=== PATIENT | male | born 2000 | race Caucasian/White ===

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

== ENCOUNTER → 2021-04-30 14:55 | Outpatient (BNVA) | payer OTHER, SELFPAY | PROVIDERS: Visit Provider Nurse Practitioner Family | DX: Z20.822 Contact with and (suspected) exposure to COVID-19 (principal) | CPT/HCPCS: 87635 ==

== ENCOUNTER → 2021-05-03 00:01 | Outpatient (BNVA) | payer OTHER, SELFPAY | PROVIDERS: Visit Provider Nurse Practitioner Family | DX: Z20.828 Contact with and (suspected) exposure to other viral communicable diseases (principal); Z20.822 Contact with and (suspected) exposure to COVID-19 | CPT/HCPCS: 87635 ==

== ENCOUNTER 2021-08-15 06:16 | Emergency (ER) | payer BC, MEDICAID, SELFPAY ==
[2021-08-15 06:18] VITALS: BP 142/87; PULSE 89; RESP 23; TEMP 37; O2SAT 99; BMI 30.7
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
[2021-08-15 06:26] VITALS: PULSE 86; RESP 16; O2SAT 100
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
[2021-08-15] MEDS: sodium chloride 0.9% 1,000 ML 999 ML IV (06:27)
[2021-08-15 06:28] VITALS: BP_SYST 142; RESP 18
[2021-08-15 06:39] LABS: Basophils # 0.1 10^3/uL (0.0-0.1); Basophils % 0.5 %; Eosinophils # 0.1 10^3/uL (0.0-0.8); Eosinophils % 1.4 %; Hematocrit 47.8 % (42.0-52.0); Lymphocytes # 3.2 10^3/uL (1.5-6.5); Lymphocytes % 32.1 %; Mean Corpuscular HGB Conc 33.5 g/dL (30.0-36.0); Mean Corpuscular Volume 86.6 fl (80-94); Mean Platelet Volume 9.6 fL (7.4-10.4); Monocytes # 0.8 10^3/uL (0.2-0.9); Monocytes % 7.8 %; Neutrophils % 57.3 %; Nucleated Red Blood Cells % 0 %; Platelet Count 340 10^3/cmm (130-400); Red Blood Count 5.52 10^6/uL (4.1-5.3); Red Cell Distribution Width 11.9 % (12.1-15.1)
[2021-08-15 06:52] LABS: Alanine Aminotransferase 47 U/L (0-41); Albumin Level 4.8 g/dL (3.5-5.2); Alkaline Phosphatase 130 IU/L (40-130); Anion Gap 14.2 (5-19); Aspartate Amino Transferase 21 U/L (0-40); Blood Urea Nitrogen 8 mg/dL (6-20); Calcium 10.1 mg/dL (8.5-10.5); Carbon Dioxide 26 mmol/L (22-29); Chloride 103 mmol/L (98-107); Creatinine Clr Calc Pharmacy 158.8984; Globulin 2.6 g/dL (1.3-4.6); Glomerular Filtration Rate 108.7 mL/min (90-130); Glucose 121 mg/dL (65-115); Osmolality Calculated 288 mOsm/kg (285-295); Potassium 4.2 mmol/L (3.5-5.1); Sodium 139 mmol/L (136-145); Total Bilirubin 0.2 mg/dL (0.15-1.2); Total Protein 7.4 g/dL (6.6-8.7)
[2021-08-15] MEDS: iohexol 350 mg/mL 100 mL Btl IV (06:55)
[2021-08-15] MEDS: tetanus-dipt-pertussis 0.5 mL SDV IM (07:36)
== END 2021-08-15 07:47 | disposition home or self-care (01) ==
PROVIDERS: Emergency Provider Family Medicine
DX: Z04.1 Encounter for examination and observation following transport accident (principal); S30.811A Abrasion of abdominal wall, initial encounter; S60.511A Abrasion of right hand, initial encounter; V19.40XA Pedal cycle driver injured in collision with unspecified motor vehicles in traffic accident, initial encounter; Y93.55 Activity, bike riding; M79.652 Pain in left thigh; Z23 Encounter for immunization
CPT/HCPCS: 70450; 71260; 72125; 73552; 73590; 74177; 80053; 85025; 90471; 90715; 96360; 99284; J7030; Q9967

== ENCOUNTER → 2021-08-27 09:01 | Outpatient (BNVA) | payer BC, MEDICAID, SELFPAY | PROVIDERS: PCP Family Medicine; Visit Provider Family Medicine | DX: Z76.89 Persons encountering health services in other specified circumstances (principal); R30.0 Dysuria; M54.16 Radiculopathy, lumbar region; M54.50 Low back pain, unspecified | CPT/HCPCS: 81003 ==

== ENCOUNTER → 2021-09-24 09:58 | Outpatient (BNVA) | payer BC, MEDICAID, SELFPAY | PROVIDERS: PCP Family Medicine; Visit Provider Family Medicine | DX: M54.16 Radiculopathy, lumbar region (principal); M54.50 Low back pain, unspecified; R31.9 Hematuria, unspecified | CPT/HCPCS: 81000; 87086 ==

== ENCOUNTER → 2021-09-25 14:59 | Outpatient (BNVA) | payer BC, MEDICAID, SELFPAY | PROVIDERS: PCP Family Medicine; Referring Provider Family Medicine; Visit Provider Specialist | DX: M25.562 Pain in left knee (principal) | CPT/HCPCS: 73560; 73565; 99203; 99204 ==

== ENCOUNTER → 2021-10-01 14:06 | Outpatient (BNVA) | payer BC, MEDICAID, SELFPAY | PROVIDERS: PCP Family Medicine; Referring Provider Family Medicine; Visit Provider Physician Assistant | DX: M54.16 Radiculopathy, lumbar region (principal); M25.512 Pain in left shoulder; M25.562 Pain in left knee | CPT/HCPCS: 72110; 73030; 99204 ==

== ENCOUNTER → 2021-11-06 07:50 | Outpatient (BNVA) | payer BC, MEDICAID, SELFPAY | PROVIDERS: PCP Family Medicine; Visit Provider Nurse Practitioner Family | DX: R31.29 Other microscopic hematuria (principal); N41.9 Inflammatory disease of prostate, unspecified | CPT/HCPCS: 81003 ==

== ENCOUNTER 2022-11-23 08:16 | Emergency (ER) | payer OTHER, SELFPAY ==
[2022-11-23 08:25] VITALS: BP 143/83; PULSE 94; RESP 18; TEMP 36.8; O2SAT 96
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
[2022-11-23] MEDS: lidocaine 1% INJ 10 mL (per mL) IM (09:00)
== END 2022-11-23 09:47 | disposition home or self-care (01) ==
PROVIDERS: Emergency Provider Family Medicine; PCP Family Medicine
DX: S61.215A Laceration without foreign body of left ring finger without damage to nail, initial encounter (principal); W26.8XXA Contact with other sharp object(s), not elsewhere classified, initial encounter
CPT/HCPCS: 12002; 99283

== ENCOUNTER 2023-01-03 14:11 | Emergency (ER) | payer BC, SELFPAY ==
[2023-01-03 14:14] VITALS: BP 135/85; PULSE 100; RESP 17; TEMP 36.8; O2SAT 98
[2023-01-03 14:22] VITALS: BP 137/83; PULSE 88; O2SAT 96
--- NOTE | 2023-01-03 14:22 | XRR_ITS ---
PROCEDURE INFORMATION: Exam: XR Chest Exam date and time: 01/03/2023 2:29 PM Age: 22 years old Clinical indication: Cough and dyspnea; Additional info: Dyspnea/cough TECHNIQUE: Imaging protocol: Radiologic exam of the chest. Views: 1 view. COMPARISON: CT chest chelseapel w/*[id number] 08/15/2021 6:43 AM FINDINGS: Lungs: Unremarkable. No consolidation. Pleural spaces: Unremarkable. No pleural effusion. No pneumothorax. Heart/Mediastinum: Unremarkable. No cardiomegaly. Bones/joints: Unremarkable. XR/XR chest 1V portable [id number] IMPRESSION: No acute findings.
--- NOTE | 2023-01-03 14:28 | ECG_ITS ---
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 Measurements Intervals [place] Rate: 85 P: 42 WV: 144 QRS: 45 QRSD: 88 T: 15 QT: 334 QTc: 398 Interpretive Statements SINUS RHYTHM WITH SINUS ARRHYTHMIA No previous ECG available for comparison Electronically Signed On 01-03-2023 20:30:06 CDT by Casey Golden M.D. [email or web address]
[2023-01-03 15:00] LABS: Basophils # 0.1 10^3/uL (0.0-0.1); Basophils % 0.5 %; Eosinophils # 0.1 10^3/uL (0.0-0.8); Eosinophils % 0.6 %; Hematocrit 46.9 % (37-53); Lymphocytes # 2.3 10^3/uL (0.8-4.8); Lymphocytes % 17.4 %; Mean Corpuscular HGB Conc 32.6 g/dL (30-55); Mean Corpuscular Hemoglobin 29.2 pg (27-33); Mean Corpuscular Volume 89.5 fl (82-101); Monocytes % 7.5 %; Neutrophils # 9.75 10^3/uL (1.8-7.7); Neutrophils % 73.5 %; Nucleated Red Blood Cells % 0 %; Platelet Count 302 10^3/cmm (157-399); Red Blood Count 5.24 10^6/uL (3.85-5.65); Red Cell Distribution Width 12.1 % (12.1-15.1); White Blood Count 13.24 10^3/uL (3.29-11.43)
--- NOTE | 2023-01-03 15:01 | W.ED.URI ---
HPI - URI/Sore Throat General: Chief Complaint: Upper Respiratory Infection Stated Complaint: abd pain, coughing up blood Time Seen by Provider: 01/03/23 14:22 Source: patient Mode of arrival: ambulatory History of Present Illness: 22-year-old male presents emergency room with complaint of productive cough and shortness of breath. He has had it for the last couple of days he was seen in walk-in clinic was thought to be viral was treated symptomatically. He has been coughing more frequently and has had onset of some whitish mucus with blood streaking in it. No fevers sweats or chills. MD elicited complaint: fever Onset (ago): day(s) Consistency: intermittent Severity: mild Description of mucous: clear and bloody (Slight streaking) Exacerbating factors: nothing Relieving factors: nothing Associated symptoms: Reports congestion and cough; Deny abdominal pain, change in voice, chills, chest pain, diarrhea, fever(s), headache(s), myalgias, nausea, rash, rhinorrhea, short of breath, stiffness, sore throat or vomiting Review of Systems Const: Denies: fever(s) or chills Card: Denies: chest pain, palpitations, irregular heart rhythm or edema Resp: Reports: productive cough, hemoptysis (Scant) and chest congestion; Denies: dyspnea or non-productive cough GI: Denies: abdominal pain, nausea, vomiting or diarrhea : Denies: flank pain, dysuria, urinary frequency or urinary urgency Skin/Breast: Denies: rash or pruritus Neuro: Denies: headache(s) PFS ED PFSH: Family History Mother Healthy adult Father Diabetes Social History Smoking and tobacco status: never smoked Alcohol intake: never Substance/Drug Use: never Caregiver/support person: Yes Household members: family Marital status: Single Current occupational status: employed Physical Exam Const: GENERAL APPEARANCE: cooperative and comfortable ORIENTATION/CONSCIOUSNESS: Yes awake, Yes oriented to person, Yes oriented to place and Yes oriented to time HENMT: COMMON NORMALS: normocephalic, atraumatic and hearing grossly normal bilaterally HEAD & SCALP: normocephalic and atraumatic Resp: COMMON NORMALS: normal respiratory effort, No retractions, No use of accessory muscles and clear to auscultation bilaterally AUSCULTATION: clear to auscultation bilaterally Cardio: COMMON NORMALS: regular rate, regular rhythm and No murmurs present (Cardio) RATE: regular rate RHYTHM: regular rhythm GI: COMMON NORMALS: Soft to palpation and No hepatosplenomegaly present AUSCULTATION: Yes normoactive bowel sounds PALPATION: Yes Soft to palpation, No Tenderness to palpation present (GI), No Guarding due to palpation present (GI) and Yes No hepatosplenomegaly present Extremity: COMMON NORMALS: normal to inspection, capillary refill normal, no clubbing, cyanosis or edema, no calf tenderness and no pedal edema Neuro: SENSORIUM/ORIENTATION: Yes oriented to person, Yes oriented to place and Yes oriented to time Skin: COMMON NORMALS: no rashes or lesions noted GENERAL SKIN EXAM: no rashes or lesions noted Course Vital Signs: Vital signs: Vital Signs Temperature 98.3 F 01/03/23 14:14 Pulse Rate 84 01/03/23 16:14 Respiratory Rate 16 01/03/23 16:14 Blood Pressure 121/80 01/03/23 16:14 Pulse Oximetry 98 01/03/23 16:14 Oxygen Delivery Me thod Room Air 01/03/23 14:22 MDM - URI/Sore Throat Medical Decision Making No acute pneumonia on chest x-ray. Chest x-rays and laboratory test reviewed. Suspect bronchitis suspect he tore some blood vessels with the excessive coughing we will start him on doxycycline 100 twice daily for 10 days and albuterol to use as needed follow-up if not improving or worsens Medical Records I reviewed the patient's medical records. Lab Data I reviewed the patient's lab results. 01/03/23 14:53 01/03/23 14:53 Radiology Impressions Chest X-Ray 01/03/23 14:22 IMPRESSION: No acute findings. Laboratory Results WBC 13.24 10^3/uL (3.29-11.43) H 01/03/23 14:53 RBC 5.24 10^6/uL (3.85-5.65) 01/03/23 14:53 Hgb 15.30 g/dL (11.27-16.99) 01/03/23 14:53 Hct 46.9 % (37-53) 01/03/23 14:53 MCV 89.5 fl (82-101) 01/03/23 14:53 MCH 29.2 pg (27-33) 01/03/23 14:53 MCHC 32.6 g/dL (30-55) 01/03/23 14:53 RDW 12.1 % (12.1-15.1) 01/03/23 14:53 Plt Count 302 10^3/cmm (157-399) 01/03/23 14:53 MPV 9.0 fL (7.4-10.4) 01/03/23 14:53 Neut % (Auto) 73.5 % 01/03/23 14:53 Lymph % (Auto) 17.4 % 01/03/23 14:53 [place] % (Auto) 7.5 % 01/03/23 14:53 Eos % (Auto) 0.6 % 01/03/23 14:53 Baso % (Auto) 0.5 % 01/03/23 14:53 Neut # (Auto) 9.75 10^3/uL (1.8-7.7) H 01/03/23 14:53 Lymph # (Auto) 2.3 10^3/uL (0.8-4.8) 01/03/23 14:53 [place] # (Auto) 1.0 10^3/uL (0.2-0.9) H 01/03/23 14:53 Eos # (Auto) 0.1 10^3/uL (0.0-0.8) 01/03/23 14:53 Baso # (Auto) 0.1 10^3/uL (0.0-0.1) 01/03/23 14:53 Nucleated RBC % (auto) 0 % 01/03/23 14:53 Nucleated RBCs # 0.0 /100WBC 01/03/23 14:53 Sodium 137 mmol/L (136-145) 01/03/23 14:53 Potassium 4.3 mmol/L (3.5-5.1) 01/03/23 14:53 Chloride 101 mmol/L (98-107) 01/03/23 14:53 Carbon Dioxide 26 mmol/L (22-29) 01/03/23 14:53 Anion Gap 14.3 (5-19) 01/03/23 14:53 BUN 11 mg/dL (6-20) 01/03/23 14:53 Creatinine 1.0 mg/dL (0.7-1.2) 01/03/23 14:53 GFR Calculation 94.3 mL/min (90-130) 01/03/23 14:53 Glucose 86 mg/dL (65-115) 01/03/23 14:53 Calculated Osmolality 283 mOsm/kg (285-295) L 01/03/23 14:53 Calcium 10.0 mg/dL (8.5-10.5) 01/03/23 14:53 Total Bilirubin 0.6 mg/dL (0.15-1.2) 01/03/23 14:53 AST 30 U/L (0-40) 01/03/23 14:53 ALT 70 U/L (0-41) H 01/03/23 14:53 Alkaline Phosphatase 107 U/L (40-130) 01/03/23 14:53 Total Protein 7.8 g/dL (6.6-8.7) 01/03/23 14:53 Albumin 5.0 g/dL (3.5-5.2) 01/03/23 14:53 Globulin 2.8 g/dL (1.3-4.6) 01/03/23 14:53 Urine Color Dark yellow (Yellow) 01/03/23 15:00 Urine Appearance Clear (CLEAR) 01/03/23 15:00 Urine pH 5 (5-7) 01/03/23 15:00 Ur Specific [place] 1.025 (1.005-1.030) 01/03/23 15:00 Urine Protein Trace (Negative) 01/03/23 15:00 Urine Glucose (UA) Norm (Normal) 01/03/23 15:00 Urine Ketones 1+ (Negative) H 01/03/23 15:00 Urine Blood Neg (Negative) 01/03/23 15:00 Urine Nitrate Negative (Negative) 01/03/23 15:00 Urine Bilirubin 1+ (Negative) H 01/03/23 15:00 Urine Urobilinogen 1 mg/dL (Negative) H 01/03/23 15:00 Ur Leukocyte Esterase Trace (Negative) H 01/03/23 15:00 Urine RBC None /hpf (0-2) 01/03/23 15:00 Urine WBC 0-4 /hpf (0-5) H 01/03/23 15:00 Ur Squamous Epith Cells None /hpf (0-5) 01/03/23 15:00 Amorphous Sediment Not Reportable 01/03/23 15:00 Urine Bacteria Trace /hpf (NONE) 01/03/23 15:00 Urine Mucus 2+ /hpf 01/03/23 15:00 All radiology interpretation(s) finalized by discharge Discharge Plan Discharge Patient Disposition: Home Clinical Impression: Bronchitis Condition: Stable Prescriptions: New doxycycline hyclate 100 mg capsule 100 mg PO BID 10 Days Qty: 20 0RF albuterol sulfate 90 mcg/actuation HFA aerosol inhaler 2 inh INHALATION Q4H PRN (Reason: shortness of breath or wheezing) Qty: 18 0RF No Action ibuprofen 200 mg Capsule 200 mg PO Q6H PRN (Reason: Pain) Discharge Orders: Discharge ED (Routine); Ordered 01/03/23 Ordered By: Conner Edward Referrals: Mario Doyle, [Primary Care Provider] - Discharge Diet: Usual diet Discharge Activity: Increase activity as tolerated Patient Instructions: Opioid Safety, Pain Management Stand Alone Forms: Work/School Release Coding Level of Care Code ED [employer] Account Executive for Brandin Phillip
[2023-01-03 15:22] LABS: Alanine Aminotransferase 70 U/L (0-41); Alkaline Phosphatase 107 U/L (40-130); Anion Gap 14.3 (5-19); Aspartate Amino Transferase 30 U/L (0-40); Blood Urea Nitrogen 11 mg/dL (6-20); Carbon Dioxide 26 mmol/L (22-29); Chloride 101 mmol/L (98-107); Globulin 2.8 g/dL (1.3-4.6); Glomerular Filtration Rate 94.3 mL/min (90-130); Glucose 86 mg/dL (65-115); Osmolality Calculated 283 mOsm/kg (285-295); Potassium 4.3 mmol/L (3.5-5.1); Sodium 137 mmol/L (136-145); Total Bilirubin 0.6 mg/dL (0.15-1.2); Total Protein 7.8 g/dL (6.6-8.7)
[2023-01-03 15:40] LABS: Bilirubin Urine 1+ (Negative); Blood Urine Neg (Negative); Glucose Urine UA Norm (Normal); Ketones Urine 1+ (Negative); Leukocyte Esterase Urine Trace (Negative); Nitrate Urine Negative (Negative); Protein Urine Trace (Negative); Specific Gravity, Urine 1.025 (1.005-1.030); Urine Appearance Clear (CLEAR); Urine Color Dark Yellow (Yellow); Urobilinogen Urine 1 mg/dL (Negative); pH Urine 5 (5-7)
[2023-01-03 15:41] LABS: Add Urine Culture? No; Add Urine Microscopic? YES; Bacteria Urine TRACE /hpf; Mucus Urine 2+ /hpf; WBC Urine 0-4 /hpf (0-5)
[2023-01-03 16:14] VITALS: BP 121/80; PULSE 84; RESP 16; O2SAT 98
== END 2023-01-03 16:15 | disposition home or self-care (01) ==
PROVIDERS: Emergency Provider Family Medicine; PCP Family Medicine
DX: J40 Bronchitis, not specified as acute or chronic (principal)
CPT/HCPCS: 36415; 71045; 80053; 81001; 85025; 93005; 99285

== ENCOUNTER 2023-05-24 10:01 | Emergency (ER) | payer BC, MEDICAID, SELFPAY ==
[2023-05-24 10:11] VITALS: BP 116/76; PULSE 141; RESP 17; TEMP 37.7; O2SAT 95; BMI 27.9
--- NOTE | 2023-05-24 10:15 | XRR_ITS ---
PROCEDURE INFORMATION: Exam: XR Chest Exam date and time: 05/24/2023 10:29 AM Age: 22 years old Clinical indication: Shortness of breath; Additional info: Dyspnea TECHNIQUE: Imaging protocol: Radiologic exam of the chest. Views: 2 views. COMPARISON: CR XR chest 1V portable [id number] 01/03/2023 2:29 PM FINDINGS: Lungs: No consolidation. Pleural spaces: No pleural effusion. No pneumothorax. Heart/Mediastinum: No cardiomegaly. Bones/joints: No acute findings. XR/XR chest 2V* [id number] IMPRESSION: No acute findings.
--- NOTE | 2023-05-24 10:37 | PC.PHAR ---
pt states he takes no prescription medications pt states has been buying otc cold and flu cough liquid-states unsure the name but takes 5ml daily prn
--- NOTE | 2023-05-24 10:40 | ED_ITS ---
HPI - SOB/Dyspnea General: Chief Complaint: Shortness of Breath/Dyspnea Stated Complaint: SOB Time Seen by Provider: 05/24/23 10:10 History of Present Illness: HPI Narrative: 22-year-old male presents to the emergen cy department with complaints of productive cough over the previous 4 days. He states he also has had a sore throat and subjective fever. He states the cough is producing a thick white mucus. He does have a history of having bronchitis previously. He denies any type of tobacco use. He states that he coughs so much that he starts to gag on the thick mucus and then feels nauseated. He does endorse recent sick contacts with similar illnesses Associated symptoms: Reports fever(s) Review of Systems General: Reports: 10 or more systems reviewed and unremarkable except in HPI and below Const: Reports: fever(s) Resp: Reports: dyspnea and productive cough PFSH ED PFSH: Family History Mother Healthy adult Father Diabetes Social History Smoking and tobacco/nicotine status: never used tobacco/nicotine Alcohol intake: never Substance/Drug Use: never Caregiver/support person: Yes Household members: family Marital status: Single Current occupational status: employed Physical Exam Narrative: EXAM NARRATIVE: Constitutional: the patient appears well nourished and of normal development. Vital signs as documented. No acute distress at present. Alert and oriented-to person, place, time and situation. Head, eyes, ears, nose, mouth, throat: Normocephalic, atraumatic. Pupils-equal, round, reactive to light. No scleral icterus. Normal-appearing external ears. Normal appearing nasal turbinates, no drainage. No obvious oral lesions, posterior oropharynx with erythema no obvious exudates noted. Neck: Supple, trachea is midline, no lymphadenopathy, no jugular venous distension, thyromegaly, or carotid bruits. Carotid upstrokes are brisk bilaterally. Lungs: clear to auscultation to all lung field. Symmetrical rise and fall of chest, no obvious signs of increased work of breathing at present. Cardiac: Regular rate and rhythm, positive S1, S2. No murmurs, rubs or gallops that I can appreciate Abdomen: Soft, non-tender to palpation, normal active bowel sounds to all quadrants. No palpable masses, no organomegaly and abdominal bruits. Extremities: 2+ pulses in the upper extremities that are equal bilaterally, 2+ pulses in the lower extremities that are equal bilaterally. Non-edematous. Moves all extremities well, sensation to all extremities are noted. Skin: Warm, dry, intact. Course Vital Signs: Vital signs: Vital Signs Temperature 99.8 F H 05/24/23 10:11 Pulse Rate 141 H 05/24/23 10:11 Respiratory Rate 17 05/24/23 10:11 Blood Pressure 116/76 05/24/23 10:11 Pulse Oximetry 95 05/24/23 10:11 Oxygen Delivery Me thod Room Air 05/24/23 10:11 MDM - SOB/Dyspnea Medical Decision Making Will obtain chest x-ray to evaluate for pneumonia and bronchitis, also obtain a influenza swab as well as a streptococcal pharyngeal screen for evaluation. Medical Records I reviewed the patient's medical records. Lab Data I reviewed the patient's lab results. Labs/Radiology: Radiology Impressions Chest X-Ray 05/24/23 10:15 IMPRESSION: No acute findings. Laboratory Results Influenza Type A Ag negative (Negative) 05/24/23 10:42 Influenza Type B Ag positive (Negative) H 05/24/23 10:42 Group A Strep Rapid Negative (Negative) 05/24/23 10:42 All radiology interpretation(s) finalized by discharge Discharge Plan Discharge Patient Disposition: Home Clinical Impression: Acute upper respiratory infection, Influenza B Condition: Stable Prescriptions: New benzonatate 200 mg capsule 200 mg PO TID Qty: 30 0RF guaifenesin 1,200 mg tablet extended release 12hr 1,200 mg PO BID Qty: 14 0RF albuterol sulfate 90 mcg/actuation HFA aerosol inhaler 2 inh inhalation Q6H PRN (Reason: shortness of breath or wheezing) Qty: 8.5 0RF No Action Cold and Flu Relief(diphen-pe) 12.5-5-325 mg/10 mL Liquid 5 ml PO DAILY PRN (Reason: Cough) Discharge Orders: Discharge ED (Routine); Ordered 05/24/23 Ordered By: Richard Jack Referrals: Mario Doyle DO [Primary Care Provider] - Discharge Diet: Advance as tolerated Discharge Activity: Resume usual activity Patient Instructions: Opioid Safety, Pain Management Activity Restrictions/Additional Instructions: Activity Restrictions/Additional Instructions: Thank you for choosing [employer] for your healthcare needs today. Please realize that you were seen in the Emergency Department and that we are providing you with an emergency medical screening exam and this may not be a complete and all inclusive of all the testing and or medical work-up that you may need to determine your ailment or severity of your illness. It is very important that you follow-up as instructed with your Primary care provider or Specialist for additional evaluation and to discuss your medical treatment plan. You may return to the Emergency Department should you have concerns or if your condition changes or worsens in any way. When Antibiotics Aren?t Needed Antibiotics DO NOT work on viruses, such as those that cause colds, flu, or COVID-19. Antibiotics also are not needed for many sinus infections and some ear infections. When antibiotics aren?t needed, they won?t help you, and the side effects could still cause harm. Common side effects of antibiotics can include: Rash Dizziness Nausea Diarrhea Yeast infections Coding Level of Care Code ED Direct Care Staffer for Brandin Phillip
[2023-05-24 10:55] LABS: Influenza A by IFA negative (Negative); Influenza B by IFA positive (Negative)
[2023-05-24 11:00] LABS: Rapid Strep A Test Negative (Negative)
== END 2023-05-24 11:21 | disposition home or self-care (01) ==
PROVIDERS: Emergency Provider Internal Medicine; PCP Family Medicine
DX: J10.1 Influenza due to other identified influenza virus with other respiratory manifestations (principal)
CPT/HCPCS: 71046; 87081; 87804; 87880; 99284

== ENCOUNTER 2023-09-17 06:58 | Emergency (ER) | payer SELFPAY ==
[2023-09-17 07:07] VITALS: BP 123/75; PULSE 67; RESP 17; TEMP 36.7; O2SAT 98; BMI 39.3
--- NOTE | 2023-09-17 07:31 | CT_ITS ---
WS: [id number] CT HEAD NONCONTRAST HISTORY: Trauma TECHNIQUE: Contiguous axial imaging performed through the brain in 2.5 mm imaging. Bone and soft tiss ue windows. Sagittal and coronal reformats reviewed. All CT scans at [facility] use at least one of these dose optimization techniques: automated exposure control; mA and/or kV adjustment per pa tient size (includes targeted exams where dose is matched to clinical indication); or iterative recon struction. DLP: 1105.39 mGy.cm COMPARISON: None available. No acute intracranial hemorrhage, midline shift or mass effect. No atrophy or prior infarcts or herniation. Ventricles: Normal size with no hydrocephalus. Paranasal sinuses: As visualized are clear. Mastoid air cells: Well pneumatized. Calvarium and scalp: Skull is intact with no soft tissue edema or swelling. CT/CT head wo con* [id number] IMPRESSION: Negative head CT.
--- NOTE | 2023-09-17 07:34 | XR_ITS ---
WS: [id number] XR cervical spine 3V* [id number] REASON FOR EXAM: trauma FINDINGS: Mild straightening of the normal lordosis of the cervical spine. Mild dextroscoliosis. Vertebral bodies intact without abnormality. Normal odontoid. Intervertebral disc spaces intact and well maintained. Facet joint alignment is normal. XR/XR cervical spine 3V* [id number] IMPRESSION: Mild alteration of the cervical spine curvatures which could be muscle spasm. N o malalignment or fracture of the cervical spine noted.
--- NOTE | 2023-09-17 07:35 | ED_ITS ---
HPI - Head Injury 2 General: Chief complaint: Head Injury Stated complaint: hit his head Time Seen by Provider: 09/17/23 07:02 Source: patient Mode of arrival: ambulatory History of Present Illness: 22-year-old male who presents emergency room after a fall at work. He is carrying a box walking out of a freezer and slipped on some water. He fell backward hit the back of his head he was stunned but did not lose consciousness he is somewhat nauseous but never had any vomiting is complaining of some mild neck discomfort. He is up and ambulatory. He arrived to the ER ambulatory and walked back to the exam room is also complaining a little bit of right hip pain although he minimizes this. He is not on any anticoagulants does not take aspirin regularly. Has a history of chronic back pain and previous concussions. He also has history of headaches. Complaint: head injury Place: work Loss of Consciousness: no Location of injury: occipital Severity: mild Quality: aching Other Injuries: none Associated symptoms: Reports neck pain; Deny amnesia, confusion, nausea, numbness, syncope, tingling, vertigo, visual changes, vomiting or weakness Review of Systems 2 Const: Denies: fever(s) or chills Card: Denies: chest pain or syncope Resp: Denies: dyspnea GI: Denies: abdominal pain, nausea or vomiting : Denies: dysuria, urinary frequency or urinary urgency Musc: Reports: neck pain; Denies: back pain Skin/Breast: Denies: rash Neuro: Denies: vertigo or confusion PFSH ED 2 PFSH: Family History Mother Healthy adult Father Diabetes Social History Smoking and tobacco/nicotine status: never used tobacco/nicotine Alcohol intake: never Substance/Drug Use: never Caregiver/support person: Yes Household members: family Marital status: Single Current occupational status: employed Physical Exam 2 Const: COMMON NORMALS: no acute distress GENERAL APPEARANCE: cooperative and comfortable ORIENTATION/CONSCIOUSNESS: Yes awake, Yes oriented to person, Yes oriented to place and Yes oriented to time HENMT: COMMON NORMALS: normocephalic, atraumatic and hearing grossly normal bilaterally HEAD & SCALP: normocephalic and atraumatic Resp: COMMON NORMALS: normal respiratory effort, No retractions, No use of accessory muscles and clear to auscultation bilaterally AUSCULTATION: clear to auscultation bilaterally Cardio: COMMON NORMALS: regular rate, regular rhythm and No murmurs present (Cardio) RATE: regular rate RHYTHM: regular rhythm GI: COMMON NORMALS: Soft to palpation and No hepatosplenomegaly present A USCULTATION: Yes normoactive bowel sounds PALPATION: Yes Soft to palpation, No Tenderness to palpation present (GI), No Guarding due to palpation present (GI) and Yes No hepatosplenomegaly present Extremity: COMMON NORMALS: normal to inspection, capillary refill normal, no clubbing, cyanosis or edema, no calf tenderness and no pedal edema Neuro: SENSORIUM/ORIENTATION: Yes oriented to person, Yes oriented to place and Yes oriented to time Skin: COMMON NORMALS: no rashes or lesions noted GENERAL SKIN EXAM: no rashes or lesions noted Course 2 Vital Signs: Vital signs: Vital Signs Temperature 98.0 F 09/17/23 07:07 Pulse Rate 67 09/17/23 07:07 Respiratory Rate 17 09/17/23 07:07 Blood Pressure 123/75 09/17/23 07:07 Pulse Oximetry 98 09/17/23 07:07 Oxygen Delivery Me thod Room Air 09/17/23 07:07 MDM - Head Injury Medcial Decision Making CT head and C-spine are negative. Reviewed with patient discharge home. Avoid exertional activity for the next 1 to 2 days. If headaches persist follow-up with primary care. Medical Records I reviewed the patient's medical records. Lab Data I reviewed the patient's lab results. 09/17/23 08:[address] 09/17/23 07:31 IMPRESSION: Negative head CT. Cervical Spine X-Ray 09/17/23 07:34 IMPRESSION: Mild alteration of the cervical spine curvatures which could be muscle spasm. No malalignment or fracture of the cervical spine noted. Laboratory Results WBC 8.16 10^3/uL (3.29-11.43) 09/17/23 08:42 RBC 5.07 10^6/uL (3.85-5.65) 09/17/23 08:42 Hgb 14.70 g/dL (11.27-16.99) 09/17/23 08:42 Hct 44.2 % (37-53) 09/17/23 08:42 MCV 87.2 fl (82-101) 09/17/23 08:42 MCH 29.0 pg (27-33) 09/17/23 08:42 MCHC 33.3 g/dL (30-55) 09/17/23 08:42 RDW 12.0 % (12.1-15.1) L 09/17/23 08:42 Plt Count 288 10^3/cmm (157-399) 09/17/23 08:42 MPV 9.4 fL (7.4-10.4) 09/17/23 08:42 Neut % (Auto) 67.0 % 09/17/23 08:42 Lymph % (Auto) 23.0 % 09/17/23 08:42 [place] % (Auto) 8.5 % 09/17/23 08:42 Eos % (Auto) 0.7 % 09/17/23 08:42 Baso % (Auto) 0.4 % 09/17/23 08:42 Neut # (Auto) 5.47 10^3/uL (1.8-7.7) 09/17/23 08:42 Lymph # (Auto) 1.9 10^3/uL (0.8-4.8) 09/17/23 08:42 [place] # (Auto) 0.7 10^3/uL (0.2-0.9) 09/17/23 08:42 Eos # (Auto) 0.1 10^3/uL (0.0-0.8) 09/17/23 08:42 Baso # (Auto) 0.0 10^3/uL (0.0-0.1) 09/17/23 08:42 Nucleated RBC % (auto) 0 % 09/17/23 08:42 Nucleated RBCs # 0.0 /100WBC 09/17/23 08:42 All radiology interpretation(s) finalized by discharge Discharge Plan Discharge Patient Disposition: Home Clinical Impression: Concussion, Closed head injury Condition: Stable Prescriptions: No Action albuterol sulfate 90 mcg/actuation HFA aerosol inhaler 2 inh inhalation Q6H PRN (Reason: shortness of breath or wheezing) Qty: 8.5 0RF Discharge Orders: Discharge ED (Routine); Ordered 09/17/23 Ordered By: Conner Edward Referrals: Mario Doyle, [Primary Care Provider] - Patient Instructions: Concussion/Head Injury - Adult, Concussion (ED), Opioid Safety, Pain Management Activity Restrictions/Additional Instructions: Thank you for choosing [facility] for your healthcare needs today. It is very important that you follow up as instructed or that you return to the Emergency Department should you have concerns or if your condition changes or worsens in any way. You were seen today after a fall. You have a mild concussion. CT of the head and x-ray of the neck were negative. You can use Tylenol and ibuprofen as needed. Recommend avoid any exertional activities for the next 24 to 48 hours if headaches persist follow-up with your primary care doctor or Workmen's Comp. physician. Coding Level of Care Code ED Rod Buster Helper for Brandin Phillip
[2023-09-17 09:00] LABS: Basophils % 0.4 %; Eosinophils # 0.1 10^3/uL (0.0-0.8); Eosinophils % 0.7 %; Hematocrit 44.2 % (37-53); Lymphocytes # 1.9 10^3/uL (0.8-4.8); Mean Corpuscular HGB Conc 33.3 g/dL (30-55); Mean Corpuscular Volume 87.2 fl (82-101); Mean Platelet Volume 9.4 fL (7.4-10.4); Monocytes # 0.7 10^3/uL (0.2-0.9); Monocytes % 8.5 %; Neutrophils # 5.47 10^3/uL (1.8-7.7); Nucleated Red Blood Cells % 0 %; Platelet Count 288 10^3/cmm (157-399); Red Blood Count 5.07 10^6/uL (3.85-5.65); White Blood Count 8.16 10^3/uL (3.29-11.43)
[2023-09-17 09:47] VITALS: BP 123/79; PULSE 71; RESP 17; TEMP 36.7; O2SAT 98
== END 2023-09-17 09:49 | disposition home or self-care (01) ==
PROVIDERS: Emergency Provider Family Medicine; PCP Family Medicine
DX: S06.0X0A Concussion without loss of consciousness, initial encounter (principal); W01.0XXA Fall on same level from slipping, tripping and stumbling without subsequent striking against object, initial encounter
CPT/HCPCS: 36415; 70450; 72040; 85025; 99284